=== PATIENT | female | born 1950 | race Caucasian/White ===

== ENCOUNTER 2017-02-23 10:57 | Outpatient (CLI) | payer MEDICARE, OTHER | END 2017-02-23 10:58 | disposition home or self-care (01) | LOC: BICRAD 10:57 | PROVIDERS: ATTEND Family Medicine | DX: M25.511 Pain in right shoulder (principal) ==

== ENCOUNTER 2017-08-11 07:28 | Outpatient (CLI) | payer MEDICARE | END 2017-08-11 07:29 | disposition home or self-care (01) | LOC: BICULT 07:28 | PROVIDERS: ATTEND Internal Medicine Gastroenterology | DX: K76.0 Fatty (change of) liver, not elsewhere classified (principal); R94.5 Abnormal results of liver function studies | CPT/HCPCS: 76705 ==

== ENCOUNTER 2018-01-09 10:57 | Outpatient (CLI) | payer MEDICARE | END 2018-01-09 10:58 | disposition home or self-care (01) | LOC: BICMAMMO 10:57 | PROVIDERS: ATTEND Family Medicine | DX: Z12.31 Encounter for screening mammogram for malignant neoplasm of breast (principal) | CPT/HCPCS: 77063; 77067 ==

== ENCOUNTER 2018-07-04 08:25 | Outpatient (CLI) | payer MEDICARE ==
--- NOTE | 2018-07-04 09:08 | CT ---
CT Brain WO Con: 07/04/2018 12:00 AM CLINICAL HISTORY: History of intracranial hemorrhage, follow-up. COMPARISON: None. FINDINGS: Hemorrhage: None. Ventricular system: Normal in size and morphology for the patient's age. Cerebral parenchyma: Microvascular ischemic disease Midline shift: None. Mass: No mass effect. Calvarium: Normal. Visualized Paranasal sinuses: Scattered inflammatory mucosal thickening. IMPRESSION: No acute intracranial abnormalities.
== END 2018-07-04 08:26 | disposition home or self-care (01) ==
LOC: TBSIIMAG 08:25
PROVIDERS: ATTEND Neurological Surgery
DX: I62.00 Nontraumatic subdural hemorrhage, unspecified (principal)
CPT/HCPCS: 70450

== ENCOUNTER 2020-01-22 09:59 | Outpatient (CLI) | payer MEDICARE ==
[2020-01-23 12:57] LABS: SARS-CoV-2 MS2 Positive; SARS-CoV-2 N Gene Negative; SARS-CoV-2 S Gene Negative; SARS-CoV-2 by NAA Not Detected (NotDetected); SARS-CoV-2 orf1ab Negative
== END 2020-01-22 10:00 | disposition home or self-care (01) ==
LOC: LABBT 09:59
PROVIDERS: ATTEND Surgery
DX: M54.5 Low back pain (principal); Z20.828 Contact with and (suspected) exposure to other viral communicable diseases
CPT/HCPCS: 87635; U0003

== ENCOUNTER 2020-01-25 10:05 | Day surgery (SDC) | payer MEDICARE ==
[2020-01-24 11:15] VITALS: BMI 31.7
[2020-01-25] MEDS ORDERED: Lidocaine 1% PF 5 ML VIAL ONE (10:30)
[2020-01-25] MEDS ORDERED: Ondansetron PF 4 MG/2 ML Vial ONE (10:30)
[2020-01-25] MEDS ORDERED: PROPOFOL 200 MG/20 ML VIAL ONE (10:30)
--- NOTE | 2020-01-25 12:44 | RAD ---
EXAM: XR Lumbar Spine Bending Min 4V PROVIDED CLINICAL HISTORY: Preoperative evaluation COMPARISON: 01/12/2016 FINDINGS: Again noted are 5 nonrib-bearing lumbar-type vertebral bodies. Laminectomy defects are seen extending from the L3 vertebral body to the lumbosacral junction. The vertebral body heights are within normal limits. There is persistent grade 1 anterolisthesis of L3 on L4 and L4 on L5. The degree of li sthesis at the L4-5 level measures 7 mm and is stable between the flexion and extension views. However, there is mild abnormal translational motion at the L3-4 levels measuring 5 mm on extension a nd 6.5 mm on flexion. There is narrowing of the intervertebral disc spaces throughout the lower lumbar spine. No fracture is visualized. Vascular calcifications are seen in the abdominal aorta. IMPRESSION: 1. Grade 1 anterolisthesis of L3 on L4 and L4 on L5 with slight abnormal translational motion at the L3-4 level. 2. Postoperative and degenerative changes lumbar spine.
[2020-01-25] MEDS ORDERED: Magnevist 469MG/ML 20 ML VIAL ONE (14:20)
--- NOTE | 2020-01-25 14:26 | MRI ---
MRI LUMBAR SPINE WITH AND WITHOUT CONTRAST: DATE: 01/25/2020 HISTORY: 70-year-old female with low back pain, right lumbar radiculopathy, and right hip pain COMPARISON: 05/08/2016 TECHNIQUE: Multiple sequences obtained in axial and sagittal planes, pre and post IV injection of gadolinium-bas ed contrast agent. FINDINGS: For the purposes of this report, it will be assumed that there are 5 lumbar-type vertebrae. Vertebral body heights are maintained. Conus medullaris terminates at L2. No major bone marrow signal abnormality. T11-12: Mild to moderate disc space narrowing. Central and bilateral paracentral disc protrusion does not contact the spinal cord. This level was imaged only on sagittal sequences. No interval change. T12-L1:Normal L1-2:Essentially normal L2-3:Mild disc space narrowing. Slight retrolisthesis of L2 on L3. Diffuse disc bulge. No high-grade central spinal canal stenosis. No neural foraminal stenosis. No interval change. L3-4:High-grade bilateral facet DJD causes grade 1 anterolisthesis of L3 on L4. Diffuse disc bulge in dents ventral aspect of thecal sac. Since the previous MRI, there has been new midline decompressive laminectomy and resection of ligamentum flavum, relieving the previously severe central spinal canal stenosis. Currently, there is mild central spinal canal stenosis. There is lateral recess stenosis bilaterally. Moderate to severe right and moderate left neural foraminal stenosis. Th e right neural foraminal stenosis may have become worse than before. Moderate disc space narrowing. L4-5:Again noted is the mild grade 1 anterolisthesis of L4 on L5 due to the high-grade bilateral face t DJD. There is new midline laminectomy defect with resection of ligamentum flavum, relieving the previously demonstrated moderate central spinal canal stenosis. There is currently no high-grade cent ral spinal canal stenosis, but there is lateral recess stenosis, right greater than left. There is moderate right and mild to moderate left neural foraminal stenosis which are unchanged. Mild disc spa ce narrowing. L5-S1:Moderate disc space narrowing. Mild diffuse disc bulge. No significant right neural foraminal s tenosis. Mild to moderate left neural foraminal stenosis. Broad-based disc-osteophyte complexes mildly chronically indents the exiting bilateral L5 nerve roots in the neural foramina. Generous nigel amy of spinal canal. IMPRESSION: 1) status post laminectomies at L3-4 and L4-5, relieving the previously demonstrated central spinal c anal stenosis at those levels. 2) grade 1 spondylolisthesis at L3-4 and L4-5 due to bilateral high-grade facet osteoarthrosis. 3) multilevel mild and moderate degenerative disc disease.
== END 2020-01-25 15:05 | disposition home or self-care (01) ==
LOC: SDC/OP 10:05
PROVIDERS: ATTEND Surgery
DX: M43.16 Spondylolisthesis, lumbar region (principal); M47.26 Other spondylosis with radiculopathy, lumbar region; M51.16 Intervertebral disc disorders with radiculopathy, lumbar region; M48.061 Spinal stenosis, lumbar region without neurogenic claudication; M25.551 Pain in right hip; Z79.84 Long term (current) use of oral hypoglycemic drugs; Z79.899 Other long term (current) drug therapy; Z88.2 Allergy status to sulfonamides; Z88.8 Allergy status to other drugs, medicaments and biological substances; Z98.890 Other specified postprocedural states
CPT/HCPCS: 72120; 72158; 82565; A9579; J2405; J2704

== ENCOUNTER 2020-03-03 14:00 | Outpatient (CLI) | payer MEDICARE ==
--- NOTE | 2020-03-03 14:46 | RAD ---
EXAM: 4 views of the right knee HISTORY: Knee pain COMPARISON: None FINDINGS: No knee effusion is seen. There is no evidence of acute fracture or dislocation. No signifi cant degenerative changes are seen. No soft tissue swelling is present. IMPRESSION: No evidence of acute osseous abnormality.
--- NOTE | 2020-03-03 14:46 | RAD ---
EXAM: 2 views of the right hip HISTORY: Right hip pain COMPARISON: None FINDINGS: 2 views of the right hip shows no evidence of acute fracture or dislocation. No degenerativ e changes are seen. No soft tissue swelling is present. IMPRESSION: No evidence of acute osseous abnormality.
== END 2020-03-03 14:01 | disposition home or self-care (01) ==
LOC: BICRAD 14:00
PROVIDERS: ATTEND Surgery
DX: M25.551 Pain in right hip (principal); M25.561 Pain in right knee

== ENCOUNTER 2020-12-11 08:58 | Outpatient (CLI) | payer MEDICARE | END 2020-12-11 08:59 | disposition home or self-care (01) | LOC: BICMAMMO 08:58 | PROVIDERS: ATTEND Specialist | DX: Z12.31 Encounter for screening mammogram for malignant neoplasm of breast (principal); M81.0 Age-related osteoporosis without current pathological fracture; M85.851 Other specified disorders of bone density and structure, right thigh; M85.852 Other specified disorders of bone density and structure, left thigh | CPT/HCPCS: 77063; 77067; 77080 ==

== ENCOUNTER 2021-12-30 12:13 | Outpatient (CLI) | payer MEDICARE | END 2021-12-30 12:14 | disposition home or self-care (01) | LOC: BICMAMMO 12:13 | PROVIDERS: ATTEND Specialist | DX: Z12.31 Encounter for screening mammogram for malignant neoplasm of breast (principal); N64.89 Other specified disorders of breast | CPT/HCPCS: 77063; 77067 ==

== ENCOUNTER 2022-01-05 15:02 | Outpatient (CLI) | payer MEDICARE | END 2022-01-05 15:03 | disposition home or self-care (01) | LOC: BICMAMMO 15:02 | PROVIDERS: ATTEND Specialist | DX: R92.8 Other abnormal and inconclusive findings on diagnostic imaging of breast (principal) | CPT/HCPCS: 76642; 77065; G0279 ==

== ENCOUNTER 2023-02-14 12:57 | Outpatient (CLI) | payer MEDICARE | END 2023-02-14 12:58 | disposition home or self-care (01) | LOC: BICMAMMO 12:57 | PROVIDERS: ATTEND Family Medicine | DX: Z12.31 Encounter for screening mammogram for malignant neoplasm of breast (principal); M85.851 Other specified disorders of bone density and structure, right thigh; M85.852 Other specified disorders of bone density and structure, left thigh | CPT/HCPCS: 77063; 77067; 77080 ==

== ENCOUNTER 2023-05-11 15:39 | Outpatient (CLI) | payer MEDICARE | END 2023-05-11 15:40 | disposition home or self-care (01) | LOC: BICRAD 15:39 | PROVIDERS: ATTEND Family Medicine | DX: M54.2 Cervicalgia (principal); M47.812 Spondylosis without myelopathy or radiculopathy, cervical region; M48.02 Spinal stenosis, cervical region; M48.03 Spinal stenosis, cervicothoracic region | CPT/HCPCS: 72050 ==

== ENCOUNTER 2023-11-09 10:34 | Outpatient (CLI) | payer MEDICARE | END 2023-11-09 10:35 | disposition home or self-care (01) | LOC: BICRAD 10:34 | PROVIDERS: ATTEND Family Medicine | DX: R05.3 Chronic cough (principal) | CPT/HCPCS: 71046 ==

== ENCOUNTER 2024-02-20 10:35 | Outpatient (CLI) | payer MEDICARE | END 2024-02-20 10:36 | disposition home or self-care (01) | LOC: BICMAMMO 10:35 | PROVIDERS: ATTEND Family Medicine | DX: Z12.31 Encounter for screening mammogram for malignant neoplasm of breast (principal) | CPT/HCPCS: 77063; 77067 ==

== ENCOUNTER 2025-02-27 11:20 | Outpatient (CLI) | payer MEDICARE | END 2025-02-27 11:21 | disposition home or self-care (01) | LOC: BICMAMMO 11:20 | PROVIDERS: ATTEND Family Medicine | DX: Z78.0 Asymptomatic menopausal state (principal); M85.859 Other specified disorders of bone density and structure, unspecified thigh | CPT/HCPCS: 77080 ==